=== PATIENT | female | born 1975 | race Two or more races ===

== ENCOUNTER 2025-05-11 01:06 | Emergency (ER) | payer MEDICAID, SELFPAY ==
[2025-05-11 01:08] VITALS: BP 138/83; PULSE 100; RESP 20; TEMP 36.7; O2SAT 95
--- NOTE | 2025-05-11 01:11 | EDNOTE_ITS ---
ED General RME/HPI General Chief complaint: Alcohol Stated complaint: AMS Time Seen by Provider: 05/11/25 01:09 Arrival date/time: 05/11/25 01:06 RME / HPI RME / HPI narrative: see [facility] Related Data Allergies Allergy/AdvReac Type Severity Reaction Status Date / Time No Known Allergies Allergy Verified 05/11/25 01:21 Review of Systems Review of Systems Systems Reviewed: All systems reviewed, normal except as documented Course Course Course Narrative: see [facility] Quality Measures none Orders Category Date Time Status CT head/brain wo con Stat Exams 05/11/25 01:15 Taken Vital Signs Vital signs: Vital Signs Temperature 98.0 F 05/11/25 01:08 Pulse Rate 100 05/11/25 01:08 Respiratory Rate 20 05/11/25 01:08 Blood Pressure 138/83 H 05/11/25 01:08 Pulse Oximetry (%) 95 05/11/25 01:08 Oxygen Delivery Method Room Air 05/11/25 01:08 Discharge Plan Plan Patient Disposition: HOME (Self Care) Problem List Clinical Impression: Alcoholic intoxication Patient/Caregiver Discharge Instructions Education Materials: Social Drinking vs Problem Drinking, ED Alcohol Intoxication Additional Instructions: Please stop all alcohol use as this can lead to lifelong complications such as cirrhosis, liver cancer among others. Should any symptoms recur or worsen patient is instructed to return to the ED. Print Language: Croatian Stand Alone Forms: [employer] Award Info., Patient Portal Info Letter [facility] Narrative [facility] hospital course: 49 y/o F with PMHx of MDD who was brought to the ED by EMS due to alcohol intoxication. Patient was taken by police officers while in the road for the in the back of the car patient banged her head against the glass a good amount of times and had 2 episodes of vomiting, police officers took her out of the car and put her on the floor trying to control her however she continued to bang her head and vomited another time. Emesis is mostly food contents no blood noted. 0121: CT of head ordered, RN spoke to son of the patient that will come and pick her up and take personal responsibility for her. 0223: Son arrived to coal picker the patient Clinical Information Provided by patient and EMS Medical Records Reviewed None Lab Interpretation Labs: none Imaging Imaging interpretation: see narrative above
[2025-05-11 01:13] VITALS: PULSE 110; RESP 20; O2SAT 98
--- NOTE | 2025-05-11 01:15 | XR_ITS ---
Examination: CT brain head without contrast. 2-D sagittal coronal reconstructions Date and time of exam:May 11, 2025, 0156 hours INDICATIONS: Injury to the head today, head pain CTDI: vol (mGy):51 DLP: (mGycm):776 Technique: Multiple CT axial sections of the brain have been obtained, 5 mm slice thickness. Contrast has not been administered. 2-D sagittal, coronal reconstructions have been obtained Low dose protocols were performed. One or more of the following dose reduction techniques were used; automated exposure control, adjustment of the mA and/or KV according to patient size, use of iterative reconstruction technique. Findings: This study is severely degraded by continual patient motion No gross hemorrhage or mass effect IMPRESSION: This study is severely limited secondary to continual patient motion No gross hemorrhage or mass effect
--- NOTE | 2025-05-11 01:21 | PC.NURSE ---
THIS USER SPOKE WITH SON, SON IS GOING TO COME TO ER AND TAKE RESPONSIBILITY FOR PATIENT WHEN DISCHARGED. PT WAITING FOR CT SCAN OF HEAD
--- NOTE | 2025-05-11 02:54 | PC.NURSE ---
SON HERE TO DIRECTOR SALES PATIENT, PT AMBULATED OUT OF ER WITHOUT ASSISTANCE AND ALERT/ORIENTED
== END 2025-05-11 02:54 | disposition home or self-care (01) ==
LOC: SERX 02:24
PROVIDERS: Emergency Provider Emergency Medicine
DX: F10.929 Alcohol use, unspecified with intoxication, unspecified (principal); S09.90XA Unspecified injury of head, initial encounter; X58.XXXA Exposure to other specified factors, initial encounter
CPT/HCPCS: 70450; 80053; 80307; 80320; 81001; 85025; 99284; G0480